=== PATIENT | male | born 1975 | race Two or more races ===

== ENCOUNTER 2019-01-26 05:45 | Emergency (ER) | payer MEDICAID ==
[~2019-01-26] VITALS: Ht 167.6 cm; Wt 87.0 kg
[2019-01-26 05:47] VITALS: BP 126/73
--- NOTE | 2019-01-26 06:55 | NUR ---
PT DC'D LILIBETH WITH BUS PASSES X 2.
== END 2019-01-26 06:59 | disposition home or self-care (01) ==
LOC: ED 06:30
DX: T69.8XXA Other specified effects of reduced temperature, initial encounter (principal); X31.XXXA Exposure to excessive natural cold, initial encounter; Y93.89 Activity, other specified; Y92.89 Other specified places as the place of occurrence of the external cause; Y99.8 Other external cause status
CPT/HCPCS: 99281